=== PATIENT | female | born 1970 | race Caucasian/White ===

== ENCOUNTER 2017-03-29 18:41 | Emergency (ER) | payer OTHER ==
[2017-03-29 19:01] VITALS: O2SAT 97
[2017-03-29] MEDS ORDERED: Phenergan 25 MG INJ IV ONE (19:35)
[2017-03-29] MEDS ORDERED: Sodium Chloride 0.9% 1000 ML 1,000 ML IV STA (19:35)
[2017-03-29] MEDS ORDERED: MORPHINE SULFATE 4 MG INJ IV ONE (19:35)
--- NOTE | 2017-03-29 19:36 | ERPHSYRPT ---
- History of Present Illness Time Seen by Provider: 03/29/17 19:28 Source: patient Exam Limitations: no limitations Patient Subjective Stated Complaint: pt here for pain all over, she states she cant describe it, no fever, eating well, pt states she has chronic pain Triage Nursing Assessment: pt alert, walked in, resp easy, skin w./d,pink, denies any injury, Physician History: FOR THE PAST 12 HOURS PT HAS HAD GENERALIZED ACHES AND HEADACHE; DENIES FEVER, CHEST PAIN, SHORTNESS OF AIR, DYSURIA, NUMBNESS, WEAKNESS. PT STATES SHE IS THIRSTY. Allergies/Adverse Reactions: tramadol Adverse Reaction (Verified 03/29/17 19:02) constipation Hx Tetanus, Diphtheria Vaccination/Date Given: No Hx Influenza Vaccination/Date Given: No Hx Pneumococcal Vaccination/Date Given: No Immunizations Up to Date: Yes - Review of Systems Constitutional: No Fever Respiratory: No Dyspnea Cardiac: No Chest Pain Abdominal/Gastrointestinal: No Vomiting Genitourinary Symptoms: No Dysuria Musculoskeletal: Arthralgias Neurological: Headache Endocrine: Other (THIRST) All Other Systems: Reviewed and Negative - Past Medical History Pertinent Past Medical History: Yes Cardiac History: High Cholesterol, Hypertension Endocrine Medical History: Diabetes Type II, Hypothyroidism Musculoskeletal History: Degenerative Disk Disease Psycho-Social History: Depression - Past Surgical History Past Surgical History: Yes Musculoskeletal: Orthopedic Surgery Other Surgical History: back surgery - Social History Smoking Status: Never smoker Exposure to second hand smoke: No Drug Use: none Patient Lives Alone: No - Female History Hx Last Menstrual Period: none - Nursing Vital Signs Nursing Vital Signs: Initial Vital Signs Temperature 98.9 F 03/29/17 18:57 Pulse Rate 88 03/29/17 18:57 Respiratory Rate 16 03/29/17 18:57 Blood Pressure 129/52 03/29/17 18:57 O2 Sat by Pulse Oximetry 97 03/29/17 18:57 Pain Scale Pain Intensity [Soft Tissue] 8 Pain Intensity 8 - Physical Exam General Appearance: alert Eye Exam: PERRL/EOMI Ears, Nose, Throat Exam: TMs normal, dry mucous membranes Neck Exam: normal inspection Respiratory Exam: lungs clear Cardiovascular Exam: normal heart sounds Gastrointestinal/Abdomen Exam: soft, normal bowel sounds Back Exam: normal range of motion Extremity Exam: normal inspection Neurologic Exam: alert, cooperative, normal mood/affect, sensation nml, No motor deficits Skin Exam: warm, dry SpO2 Interpretation: normal SpO2: 97 Oxygen Delivery: Room Air - Course Nursing assessment & vital signs reviewed: Yes Ordered Tests: Active Orders 24 hr Category Date Time Status IV Insertion STAT Care 03/29/17 19:35 Active CBC W DIFF Stat Lab 03/29/17 19:30 Completed CMP Stat Lab 03/29/17 19:30 Completed HCG QUALITATIVE,SERUM Stat Lab 03/29/17 19:30 Completed MAG [MAGNESIUM] Stat Lab 03/29/17 19:30 Completed Manual Differential NC Stat Lab 03/29/17 19:[address] [place] Screen Stat Lab 03/29/17 19:30 Completed UA W/RFX UR CULTURE Stat Lab 03/29/17 19:30 Completed Medication Summary Discontinued Medications Generic Name Dose Route Start Last Admin Trade Name Freq PRN Reason Stop Dose Admin Sodium Chloride 1,000 mls @ 999 mls/hr 03/29/17 19:35 03/29/17 19:41 Sodium Chloride 0.9% 1000 Ml IV 03/29/17 20:35 999 mls/hr .Q1H1M STA Administration Sodium Chloride Confirm 03/29/17 19:39 Sodium Chloride 0.9% 1000 Ml Administered 03/29/17 19:40 Dose 1,000 mls @ ud .ROUTE .STK-MED ONE Morphine Sulfate 4 mg 03/29/17 19:35 03/29/17 19:41 Morphine Sulfate 4 Mg Inj IV 03/29/17 19:36 4 mg STAT ONE Administration Morphine Sulfate Confirm 03/29/17 19:39 Morphine Sulfate 4 Mg Inj Administered 03/29/17 19:40 Dose 4 mg .ROUTE .STK-MED ONE Promethazine HCl 12.5 mg 03/29/17 19:35 03/29/17 19:41 Phenergan 25 Mg Inj IV 03/29/17 19:36 12.5 mg STAT ONE Administration Promethazine HCl Confirm 03/29/17 19:39 Phenergan 25 Mg Inj Administered 03/29/17 19:40 Dose 25 mg .ROUTE .STK-MED ONE Lab/Rad Data: Laboratory Result Diagrams 03/29/17 19:30 03/29/17 19:30 Laboratory Results 03/29/17 03/29/17 03/29/17 Range/Units 19:30 19:30 19:30 WBC (4.0-10.5) K/mm3 RBC (4.1-5.4) M/mm3 Hgb (12.0-16.0) gm/dl Hct (35-47) % MCV (78-100) fl MCH (26-32) pg MCHC (32-36) g/dl RDW (11.5-14.0) % Plt Count (150-450) K/mm3 MPV (6-9.5) fl Sodium 139 (136-145) mEq/L Potassium 3.7 (3.5-5.1) mEq/L Chloride 104 (98-107) mEq/L Carbon Dioxide 23.0 (21-32) mEq/L Anion Gap 16.0 H (5-15) MEQ/L BUN 19 (9-20) mg/dL Creatinine 1.07 (0.55-1.30) mg/dl Estimated GFR 58 ML/MIN Glucose 220 H (70-110) MG/DL Calcium 8.6 (8.5-10.1) mg/dL Magnesium 1.9 (1.8-2.4) mg/dL Total Bilirubin 0.30 (0.2-1.0) mg/dL AST 27 (15-37) U/L ALT 27 (12-78) U/L Alkaline Phosphatase 95 (46-116) U/L Serum Total Protein 7.6 (6.4-8.2) gm/dL Albumin 3.6 (3.4-5.0) g/dL Serum , Qual NEGATIVE (Negative) Ur Collection Type Urine Color (YELLOW) Urine Appearance (CLEAR) Urine pH (5-6) Ur Specific [place] (1.005-1.025) Urine Protein (Negative) Urine Ketones (NEGATIVE) Urine Blood (0-5) Anderson/ul Urine Nitrite (NEGATIVE) Urine Bilirubin (NEGATIVE) Urine Urobilinogen (0-1) mg/dL Ur Leukocyte Esterase (NEGATIVE) Urine Glucose (NEGATIVE) mg/dL Monoscreen NEGATIVE (Negative) Specimen Received 03/29/17 03/29/17 Range/Units 19:30 19:30 WBC 9.2 (4.0-10.5) K/mm3 RBC 4.82 (4.1-5.4) M/mm3 Hgb 14.4 (12.0-16.0) gm/dl Hct 42.5 (35-47) % MCV 88.2 (78-100) fl MCH 29.9 (26-32) pg MCHC 33.9 (32-36) g/dl RDW 13.1 (11.5-14.0) % Plt Count 215 (150-450) K/mm3 MPV 12.0 H (6-9.5) fl Sodium (136-145) mEq/L Potassium (3.5-5.1) mEq/L Chloride (98-107) mEq/L Carbon Dioxide (21-32) mEq/L Anion Gap (5-15) MEQ/L BUN (9-20) mg/dL Creatinine (0.55-1.30) mg/dl Estimated GFR ML/MIN Glucose (70-110) MG/DL Calcium (8.5-10.1) mg/dL Magnesium (1.8-2.4) mg/dL Total Bilirubin (0.2-1.0) mg/dL AST (15-37) U/L ALT (12-78) U/L Alkaline Phosphatase (46-116) U/L Serum Total Protein (6.4-8.2) gm/dL Albumin (3.4-5.0) g/dL Serum , Qual (Negative) Ur Collection Type CLEAN CATCH Urine Color YELLOW (YELLOW) Urine Appearance CLEAR (CLEAR) Urine pH 5.0 (5-6) Ur Specific [place] 1.025 (1.005-1.025) Urine Protein NEGATIVE (Negative) Urine Ketones NEGATIVE (NEGATIVE) Urine Blood NEGATIVE (0-5) Anderson/ul Urine Nitrite NEGATIVE (NEGATIVE) Urine Bilirubin NEGATIVE (NEGATIVE) Urine Urobilinogen NORMAL (0-1) mg/dL Ur Leukocyte Esterase NEGATIVE (NEGATIVE) Urine Glucose 50 (NEGATIVE) mg/dL Monoscreen (Negative) Specimen Received 03/29/171934 - Departure Time of Disposition: 21:03 Departure Disposition: Home Clinical Impression: HEADACHE, ARTHRALGIAS, HTN, DM, HYPOTHYROIDISM, DEPRESSION Condition: Stable Critical Care Time: No Referrals: AMNA BALL [Primary Care Provider] - Instructions: Chronic Pain -- Adult Additional Instructions: FOLLOW UP WITH PRIVATE DOCTOR TOMORROW. Prescriptions: Naproxen [Naprosyn] 500 mg PO Q12H PRN PRN #20 tablet PRN Reason: Pain
[2017-03-29] MEDS ORDERED: Phenergan 25 MG INJ ONE (19:39)
[2017-03-29] MEDS ORDERED: Sodium Chloride 0.9% 1000 ML 1,000 ML ONE (19:39)
[2017-03-29] MEDS ORDERED: MORPHINE SULFATE 4 MG INJ ONE (19:39)
[2017-03-29 19:43] LABS: Mean Cell Volume 88.2 fl (78-100); Mean Corpuscular Hemoglobin 29.9 pg (26-32); Platelet Count 215 K/mm3 (150-450); Red Blood Count 4.82 M/mm3 (4.1-5.4); Red Cell Distribution Width 13.1 % (11.5-14.0); White Blood Count 9.2 K/mm3 (4.0-10.5)
[2017-03-29 19:59] LABS: ALBUMIN 3.6 g/dL (3.4-5.0); BILIRUBIN,TOTAL 0.3 mg/dL (0.2-1.0); Potassium 3.7 mEq/L (3.5-5.1); Total Protein 7.6 gm/dL (6.4-8.2)
[2017-03-29 20:17] LABS: ADD URINE CULTURE? NO (NO); Bilirubin NEGATIVE (NEGATIVE); Blood NEGATIVE Ery/ul (0-5); COMPLETE URINE MICROSCOPIC? NO; Collection Type CLEAN CATCH; Glucose 50 mg/dL (NEGATIVE); Leukocyte Esterase NEGATIVE (NEGATIVE)
[2017-03-29 20:19] VITALS: BP 142/83; PULSE 86
[2017-03-29] MEDS ORDERED: TORAdol 30 mg Injection IV ONE (21:04)
[2017-03-29] MEDS ORDERED: TORAdol 30 mg Injection ONE (21:06)
[2017-03-29 23:22] LABS: Eosinophil 2 % (0.00-3.0); Platelet Estimate NORMAL (NORMAL); Total Cells Counted 100
== END 2017-03-29 21:25 | disposition home or self-care (01) ==
LOC: ED 18:41
DX: R51 Headache (principal); M25.50 Pain in unspecified joint; I10 Essential (primary) hypertension; E11.9 Type 2 diabetes mellitus without complications; E03.9 Hypothyroidism, unspecified; F32.9 Major depressive disorder, single episode, unspecified; R63.1 Polydipsia; E78.00 Pure hypercholesterolemia, unspecified
CPT/HCPCS: 36000; 36415; 80053; 81002; 83735; 84703; 85025; 86308; 96374; 96375; 99283; J1885; J2270; J2550

== ENCOUNTER 2017-09-04 12:42 | Emergency (ER) | payer OTHER ==
[2017-09-04] MEDS ORDERED: Norco 10/325 MG Tablet PO ONE (13:11)
--- NOTE | 2017-09-04 13:14 | ERPHSYRPT ---
- History of Present Illness Time Seen by Provider: 09/04/17 13:05 Patient Subjective Stated Complaint: Pt states "I am not sure what is wrong, I woke up this morning and my left leg syed up into my knee and hip. I have a bruise on the side of my leg and I am not sure how it got there." Triage Nursing Assessment: Pt alert and oriented X 3, skin pwd. PT ambulates with a limp, able to speak in clear full sentences. PT has small bruise noted to lateral left leg. CSM X 4 throughout Physician History: PATIENT WITH A HISTORY OF HYPERTENSION AND TYPE 2 DIABETES COMPLAINS OF AWAKENING THIS AM WITH LEFT CALF PAIN, WORSE UPON WEIGHT BEARING. DENIES HISTORY OF TRAUMA OR INJURY. Method of Injury: unknown Occurred: this morning Quality: constant Severity of Pain-Max: moderate Severity of Pain-Current: moderate Lower Extremities Pain: leg: left (LEFT MID CALF) Modifying Factors: Improves With: movement, other (WEIGHT BEARING) Allergies/Adverse Reactions: tramadol Adverse Reaction (Verified 03/29/17 19:02) constipation Home Medications: Aspirin EC 81 mg [Ecotrin 81 mg] 81 mg PO DAILY 05/26/17 [History] Carvedilol 6.25 mg [Coreg 6.25 MG] 6.25 mg PO BID 05/26/17 [History] Duloxetine HCl [Cymbalta] 60 mg PO DAILY 05/26/17 [History] Ezetimibe 10 mg [Zetia 10 MG] 10 mg PO DAILY 05/26/17 [History] Ibuprofen 800 mg PO QID 05/26/17 [History] Lisinopril 10 mg [Zestril 10 MG] 10 mg PO DAILY 05/26/17 [History] Metformin HCl 500 mg [Glucophage 500 MG] 500 mg PO DAILY 05/26/17 [History ] Pravastatin Sodium [Pravachol] 40 mg PO DAILY 05/26/17 [History] Pregabalin [Lyrica 75 mg Cap] 75 mg PO BID 05/26/17 [History] Hx Tetanus, Diphtheria Vaccination/Date Given: Yes Hx Influenza Vaccination/Date Given: Yes Hx Pneumococcal Vaccination/Date Given: No Immunizations Up to Date: Yes - Review of Systems Constitutional: No Symptoms, No Fever, No Chills Musculoskeletal: Other (CALF PAIN) Neurological: No Symptoms, No Dizziness, No Focal Weakness, No Sensory Changes Psychological: No Symptoms - Past Medical History Pertinent Past Medical History: Yes Neurological History: Migraines, Peripheral Neuropathy Cardiac History: High Cholesterol, Hypertension, Other Respiratory History: No Pertinent History Endocrine Medical History: Diabetes Type II Musculoskeletal History: Arthritis, Degenerative Disk Disease Psycho-Social History: Depression Other Medical History: Pt took neurotin with no relief. 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 Spondylosis. - Past Surgical History Past Surgical History: Yes Musculoskeletal: Orthopedic Surgery Other Surgical History: back surgery - Social History Smoking Status: Never smoker Exposure to second hand smoke: Yes Drug Use: none Patient Lives Alone: No - Female History Hx Last Menstrual Period: 07/16/2017 Hx Now: No - Nursing Vital Signs Nursing Vital Signs: Initial Vital Signs Temperature 98.1 F 09/04/17 12:52 Pulse Rate 80 09/04/17 12:52 Respiratory Rate 18 09/04/17 12:52 Blood Pressure 105/65 09/04/17 12:52 O2 Sat by Pulse Oximetry 98 09/04/17 12:52 Pain Scale Pain Intensity [Left Calf] 7 Pain Intensity 5 - Physical Exam General Appearance: no apparent distress, alert Neck Exam: normal inspection Cardiovascular/Respiratory Exam: normal breath sounds, heart sounds normal Legs Exam: left leg: normal inspection, pain, soft tissue tenderness ( CIRCUMFERENCE RIGHT MID CALF 47CM, LEFT MID CALF CIRCUMFERENCE 48CM, POSITIVE YUMIKO SIGN), other (LEFT PEDIS PULSE 2+) Neuro/Tendon Exam: normal sensation, normal motor functions Mental Status Exam: alert, oriented x 3 SpO2 Interpretation: normal SpO2: 98 Oxygen Delivery: Room Air - Radiology Ultrasound Exam Venous Lower Extremity Ultrasound: discussed w/radiologist (VENOUS DOPPLER NEGATIVE FOR DVT) Ordered Tests: Active Orders 24 hr Category Date Time Status VENOUS UNILAT/LIMITED EXTREMIT [US] Stat Exams 09/04/17 15:18 Taken Medication Summary Discontinued Medications Generic Name Dose Route Start Last Admin Trade Name Freq PRN Reason Stop Dose Admin Hydrocodone Bitart/Acetaminophen 1 tab 09/04/17 13:11 09/04/17 13:23 [place] 10/325 Mg Tablet PO 09/04/17 13:12 1 tab STAT ONE Administration Hydrocodone Bitart/Acetaminophen Confirm 09/04/17 13:20 [place] 10/325 Mg Tablet Administered 09/04/17 13:21 Dose 1 tab .ROUTE .STK-MED ONE - Progress Progress: improved Progress Note: 09/04/17 13:32 ADMINISTERED VICODIN 10/325 ORALLY Counseled pt/family regarding: diagnosis, need for follow-up, rad results - Departure Time of Disposition: 15:35 Departure Disposition: Home Clinical Impression: PHLEBITIS LEFT LEG Condition: Stable Critical Care Time: No Referrals: AMNA BALL [Primary Care Provider] - Additional Instructions: PREDNISONE 20MG, 2 TABLETS DAILY FOR 4 DAYS, ANTIBIOTIC KEFLEX 500MG EVERY 8 HOURS FOR 7 DAYS. NORCO 5/325 EVERY 4 HOURS FOR PAIN. AMBULATE USING WALKER ASSISTANCE NONWEIGHT BEARING LEFT LEG FOR 1 WEEK. CONSULT YOUR PRIMARY CARE PROVIDER FOR FOLLOWUP IN 1 WEEK. Prescriptions: Cephalexin Mh 500 mg [Keflex 500 mg] 500 mg PO TID #21 capsule Hydrocodone Bit/Acetaminophen [[place] 5-325 Tablet] 1 each PO Q4-6HPRN PRN #8 tablet MDD 4 PRN Reason: Pain Prednisone 20 mg [Deltasone 20 mg] 2 tab PO DAILY #8 tablet
[2017-09-04] MEDS ORDERED: Norco 10/325 MG Tablet ONE (13:20)
[2017-09-04 15:40] VITALS: BP 98/54; PULSE 78; O2SAT 97
--- NOTE | 2017-09-04 20:23 | XRAY ---
Indication: Left calf pain. Two-dimensional sonogram and color Doppler imaging of the major venous vessels of the left leg was performed. Comparison: None Exam technically difficult due to patient body habitus. No thrombus seen in the examined deep venous vessels of the left leg including greater saphenous vein. Veins demonstrate normal compressibility. Venous waveforms are normal with and without augmentation. Impression: Left leg negative for DVT. Comment: Preliminary report was given.
== END 2017-09-04 15:40 | disposition home or self-care (01) ==
LOC: ED 12:42
DX: I80.3 Phlebitis and thrombophlebitis of lower extremities, unspecified (principal); Z79.899 Other long term (current) drug therapy; E11.9 Type 2 diabetes mellitus without complications; I10 Essential (primary) hypertension
CPT/HCPCS: 93971; 99283; A9270-GY

== ENCOUNTER 2017-09-06 16:23 | Emergency (ER) | payer OTHER ==
--- NOTE | 2017-09-06 16:48 | ERPHSYRPT ---
- History of Present Illness Time Seen by Provider: 09/06/17 16:29 Source: patient Patient Subjective Stated Complaint: pt here for a dog bite to top of foot right foot below 3rd and 4th toes and 1 cm laceration to 4th toe and puncture wounds medial Triage Nursing Assessment: pt alert, arrived per wc, resp easy, small amt of bleeding noted Physician History: CC: dog bite Hx: 47 y/o patient of Dr Ball has dog bite to right foot, [employer]. She was trying to separate to family dogs that were fighting. No other injuries. Tetanus up to date less than 5 years. She has been on keflex and norco for left leg pain. She has hx of DM. Allergies/Adverse Reactions: tramadol Adverse Reaction (Verified 09/06/17 16:44) constipation Home Medications: Aspirin EC 81 mg [Ecotrin 81 mg] 81 mg PO DAILY 05/26/17 [History] Carvedilol 6.25 mg [Coreg 6.25 MG] 6.25 mg PO BID 05/26/17 [History] Duloxetine HCl [Cymbalta] 60 mg PO DAILY 05/26/17 [History] Ezetimibe 10 mg [Zetia 10 MG] 10 mg PO DAILY 05/26/17 [History] Ibuprofen 800 mg PO QID 05/26/17 [History] Lisinopril 10 mg [Zestril 10 MG] 10 mg PO DAILY 05/26/17 [History] Metformin HCl 500 mg [Glucophage 500 MG] 500 mg PO DAILY 05/26/17 [History ] Pravastatin Sodium [Pravachol] 40 mg PO DAILY 05/26/17 [History] Pregabalin [Lyrica 75 mg Cap] 75 mg PO BID 05/26/17 [History] Hx Tetanus, Diphtheria Vaccination/Date Given: ([id number]) Hx Influenza Vaccination/Date Given: No Hx Pneumococcal Vaccination/Date Given: No Immunizations Up to Date: Yes - Review of Systems Constitutional: No Fever, No Chills Eyes: No Symptoms Ears, Nose, & Throat: No Symptoms Cardiac: No Chest Pain Abdominal/Gastrointestinal: No Abdominal Pain Musculoskeletal: Injury (right foot), No Back Pain, No Neck Pain Skin: Skin Lesions, No Rash Neurological: No Focal Weakness, No Headache, No Parasthesia All Other Systems: Reviewed and Negative - Past Medical History Pertinent Past Medical History: Yes Neurological History: Migraines, Peripheral Neuropathy Cardiac History: High Cholesterol, Hypertension, Other Respiratory History: No Pertinent History Endocrine Medical History: Diabetes Type II Musculoskeletal History: Arthritis, Degenerative Disk Disease Psycho-Social History: Depression Other Medical History: Spondylosis - Past Surgical History Past Surgical History: Yes Musculoskeletal: Orthopedic Surgery Other Surgical History: back surgery - Social History Smoking Status: Never smoker Exposure to second hand smoke: Yes Drug Use: none Patient Lives Alone: No - Female History Hx Last Menstrual Period: post Hx Now: No - Nursing Vital Signs Nursing Vital Signs: Initial Vital Signs Temperature 99.1 F 09/06/17 16:34 Pulse Rate 86 09/06/17 16:34 Respiratory Rate 16 09/06/17 16:34 Blood Pressure 145/85 09/06/17 16:34 O2 Sat by Pulse Oximetry 97 09/06/17 16:34 Pain Scale Pain Intensity 5 - Physical Exam General Appearance: alert Eyes, Ears, Nose, Throat Exam: moist mucous membranes Neck Exam: normal inspection, non-tender, supple Cardiovascular/Respiratory Exam: normal breath sounds, regular rate/rhythm Gastrointestinal/Abdominal Exam: non-tender, soft Neuro/Tendon Exam: normal sensation, normal motor functions Mental Status Exam: alert, oriented x 3, cooperative Skin Exam: warm, dry SpO2 Interpretation: normal SpO2: 97 Oxygen Delivery: Room Air Comments: Right foot has dorsal puncture distal to dorsalis pedis pulse which is present. There is mild swelling. There is 1 cm laceration medial prox 4th toe in web. There is punctures to the medial MTP area. Sensation intact. Cap refill intact. No FB noted. - Course Nursing assessment & vital signs reviewed: Yes - Radiology Exams right foot X-ray Interpretation: Teleradiologist Report, No Fracture (no FB, small dorsal soft tissue air) Ordered Tests: Active Orders 24 hr Category Date Time Status Splint STAT Care 09/06/17 17:18 Active Wound Care STAT Care 09/06/17 16:40 Active FOOT (MINIMUM 3 VIEWS) Stat Exams 09/06/17 16:54 Completed - Progress Progress Note: 09/06/17 17:19 Wounds cleansed. Irrigated dorsal. Augmentin given. To follow up with Dr Ball. Instr given. Toe lac not gaping or bleeding so not repaired. Counseled pt/family regarding: diagnosis, need for follow-up, rad results - Departure Time of Disposition: 17:19 Departure Disposition: Home Clinical Impression: Dog bite of right foot Condition: Stable Critical Care Time: No Referrals: AMNA BALL [Primary Care Provider] - Instructions: Animal Bites (DC) Additional Instructions: LACERATION CARE 1. Do not use peroxide, merthiolate, alcohol, or betadine. 2. Keep wound clean and dry. 3. Change dressing if it becomes wet or soiled. 4. If you must work, wear protective covering. 5. You may return to the emergency department or see your family physician for suture removal. 6. See your family physician or return to the emergency department for any of the following signs or symptoms: A. Redness B. Swelling C. Discolored drainage D. Red streaks E. Elevated temperature F. Other signs of infection Rx augmentin instead of keflex. Use your norco as already prescribed. Report any sign of infection right away. Prescriptions: Amox Tr/[place] Clav. 875 mg [Augmentin 875-125 Tablet] 875 mg PO BID #20 tablet
--- NOTE | 2017-09-06 17:01 | XRAY ---
Indication: Dog bite. Comparison: None 3 nonweightbearing views of the right foot demonstrates mild anterior forefoot soft tissue swelling with tiny subcutaneous air bubble. Elsewhere posterior/plantar heel spurs and 5th metatarsal base tiny spur. No other bony, articular, or soft tissue abnormalities.
[2017-09-06] MEDS ORDERED: Augmentin 875-125 Tablet PO ONE (17:18)
[2017-09-06] MEDS ORDERED: Augmentin 875-125 Tablet ONE (17:58)
[2017-09-06 18:12] VITALS: BP 112/81; PULSE 80; O2SAT 98
== END 2017-09-06 18:11 | disposition home or self-care (01) ==
LOC: ED 16:23
DX: S91.351A Open bite, right foot, initial encounter (principal); W54.0XXA Bitten by dog, initial encounter
CPT/HCPCS: 73630; 99283; 99284; A9270-GY

== ENCOUNTER 2018-04-06 12:37 | Observation (INO) | payer OTHER ==
[2018-04-06] MEDS ORDERED: BABY ASPIRIN 81 MG CHEW (13:35)
[2018-04-06] MEDS: BABY ASPIRIN 81 MG CHEW PO (13:36)
[2018-04-06 13:57] LABS: BASOPHIL % 0.4 % (0.0-0.4); Basophil (Absolute #) 0.03 (0-0.4); Eosinophil % 2.9 % (0.00-5.0); Eosinophil (Absolute #) 0.24 (0-0.5); Granulocyte Absolute (ANC) 5.62 (1.4-6.9); Granulocytes % 67.3 % (36.0-66.0); Hematocrit 43.7 % (35-47); Hemoglobin 14.3 gm/dl (12.0-16.0); Lymphocytes % 25.2 % (24.0-44.0); Mean Cell Volume 83.6 fl (78-100); Mean Corpuscular Hemoglobin 27.3 pg (26-32); Mean Corpuscular Hgb Concent. 32.7 g/dl (32-36); Mean Platelet Volume 10.7 fl (6-9.5); Monocyte (Absolute #) 0.35 (0.0-1.3); Monocytes % 4.2 % (0.0-12.0); Platelet Count 186 K/mm3 (150-450); Red Blood Count 5.23 M/mm3 (4.1-5.4); Red Cell Distribution Width 15.3 % (11.5-14.0); White Blood Count 8.3 K/mm3 (4.0-10.5)
[2018-04-06 14:02] LABS: ADD MANUAL DIFF? NO (NO)
[2018-04-06 14:19] LABS: ALBUMIN 4.3 g/dL (3.5-5.0); ALKALINE PHOSPHATASE 91 U/L (38-126); AMYLASE 53 U/L (30-110); BLOOD UREA NITROGEN 16 mg/dL (7-17); CHLORIDE 103 mmol/L (98-107); Calcium 9.5 mg/dL (8.4-10.2); Carbon Dioxide 27 mmol/L (22-30); Creatinine 1 0.77 mg/dL (0.52-1.04); EST GLOMERULAR FILTRATION RATE > 60.0 ML/MIN; Glucose 94 mg/dL (74-106); LIPASE 174 U/L (23-300); Potassium 4.3 mmol/L (3.5-5.1); SGOT/AST 32 U/L (14-36); SGPT/ALT 20 U/L (0-35); SODIUM 141 mmol/L (137-145); Total Protein 7.6 g/dL (6.3-8.2)
[2018-04-06 14:38] LABS: TROPONIN < 0.012 ng/mL (0.000-0.034)
[2018-04-06 15:01] LABS: HCG QUALITATIVE,SERUM NEGATIVE (Negative)
[2018-04-06] MEDS ORDERED: NovoLOG Insulin SQ (15:25)
[2018-04-06] MEDS ORDERED: Sodium Chloride 0.9% 10 ML FLUSH Syringe IV (16:52)
[2018-04-06] MEDS: Zofran 4 MG/2 ML VIAL IV (17:06)
[2018-04-06] MEDS: Protonix 40MG Tablet PO (17:07)
[2018-04-06] MEDS: TYLENOL 325 MG PO ×2 (17:07→22:01)
[2018-04-06 18:02] LABS: TROPONIN < 0.012 ng/mL (0.000-0.034)
[2018-04-06 18:42] LABS: HEMOGLOBIN A1C 5.48 % (4.5-6.0)
[2018-04-06 19:54] LABS: TROPONIN < 0.012 ng/mL (0.000-0.034)
[2018-04-06] MEDS: Sodium Chloride 0.9% 10 ML FLUSH Syringe IV (21:41)
[2018-04-06] MEDS: Coreg 6.25 MG PO (21:42)
[2018-04-06] MEDS: Cymbalta 30 MG Capsule PO (21:42)
[2018-04-06] MEDS: Zetia 10 MG PO (21:42)
[2018-04-06] MEDS: LYRICA 150MG PO (21:42)
[2018-04-06] MEDS: ZOCOR 20MG PO (21:42)
[2018-04-06] MEDS ORDERED: NON-FORMULARY ITEM (Pravastatin Sodium [Pravachol] 40 MG) PO (22:00)
[2018-04-06] MEDS ORDERED: Ecotrin 325 MG PO (22:00)
[2018-04-06] MEDS ORDERED: NON-FORMULARY ITEM (Duloxetine Hcl [Cymbalta] 60 MG) PO (22:00)
[2018-04-06 23:41] LABS: TROPONIN < 0.012 ng/mL (0.000-0.034)
[2018-04-07 02:08] LABS: BASOPHIL % 0.3 % (0.0-0.4); Basophil (Absolute #) 0.02 (0-0.4); Eosinophil % 4.7 % (0.00-5.0); Eosinophil (Absolute #) 0.33 (0-0.5); Granulocyte Absolute (ANC) 3.63 (1.4-6.9); Granulocytes % 51.3 % (36.0-66.0); Hematocrit 42.8 % (35-47); Lymphocyte (Absolute #) 2.75 (1.0-4.6); Lymphocytes % 38.9 % (24.0-44.0); Mean Cell Volume 85.6 fl (78-100); Mean Corpuscular Hgb Concent. 32.7 g/dl (32-36); Mean Platelet Volume 10.3 fl (6-9.5); Monocyte (Absolute #) 0.34 (0.0-1.3); Monocytes % 4.8 % (0.0-12.0); Platelet Count 150 K/mm3 (150-450); Red Cell Distribution Width 15.4 % (11.5-14.0); White Blood Count 7.1 K/mm3 (4.0-10.5)
[2018-04-07 02:13] LABS: ADD MANUAL DIFF? NO (NO)
[2018-04-07 02:54] LABS: TROPONIN < 0.012 ng/mL (0.000-0.034)
[2018-04-07 03:32] LABS: ALBUMIN 3.7 g/dL (3.5-5.0); ALKALINE PHOSPHATASE 75 U/L (38-126); AMYLASE 37 U/L (30-110); ANION GAP 13.4 MEQ/L (5-15); BLOOD UREA NITROGEN 15 mg/dL (7-17); CHLORIDE 103 mmol/L (98-107); Calcium 8.9 mg/dL (8.4-10.2); Carbon Dioxide 27 mmol/L (22-30); Creatinine 1 0.77 mg/dL (0.52-1.04); EST GLOMERULAR FILTRATION RATE > 60.0 ML/MIN; Glucose 94 mg/dL (74-106); LIPASE 184 U/L (23-300); Potassium 4.3 mmol/L (3.5-5.1); SGOT/AST 32 U/L (14-36); SGPT/ALT 17 U/L (0-35); SODIUM 139 mmol/L (137-145); Total Protein 6.6 g/dL (6.3-8.2)
[2018-04-07] MEDS: Sodium Chloride 0.9% 10 ML FLUSH Syringe IV (06:50)
[2018-04-07] MEDS: Coreg 6.25 MG PO (08:10)
[2018-04-07] MEDS: LYRICA 150MG PO (08:10)
[2018-04-07] MEDS: Cymbalta 30 MG Capsule PO (08:10)
[2018-04-07] MEDS: Zestril 10 MG PO (08:14)
[2018-04-07] MEDS: Protonix 40MG Tablet PO (08:14)
[2018-04-07] MEDS: ECOTRIN 81 MG PO (08:14)
[2018-04-07] MEDS: SYNTHROID 75 MCG PO (08:14)
== END 2018-04-07 10:55 | disposition home or self-care (01) ==
LOC: ED 12:37 → MED SURG 15:22
CPT/HCPCS: 36000; 36415; 71045; 80053; 82150; 82962; 83036; 83690; 84484; 84703; 85025; 93005; 99285; J2405

== ENCOUNTER 2021-05-17 10:44 | Emergency (ER) | payer OTHER ==
[2021-05-17 11:52] LABS: Absolute Neutrophil Ct (ANC) 1.27 (1.4-6.9); Basophil (Absolute #) 0 (0-0.4); Eosinophil % 0.5 % (0.00-5.0); Eosinophil (Absolute #) 0.01 (0-0.5); Hematocrit 42.7 % (35-47); Hemoglobin 13.6 gm/dl (12.0-16.0); Lymphocyte (Absolute #) 0.75 (1.0-4.6); Lymphocytes % 34.1 % (24.0-44.0); Mean Cell Volume 91.6 fl (78-100); Mean Corpuscular Hemoglobin 29.2 pg (26-32); Mean Corpuscular Hgb Concent. 31.9 g/dl (32-36); Monocyte (Absolute #) 0.17 (0.0-1.3); Monocytes % 7.7 % (0.0-12.0); Neutrophil % 57.7 % (36.0-66.0); Platelet Count 83 K/mm3 (150-450); Red Blood Count 4.66 M/mm3 (4.1-5.4); Red Cell Distribution Width 14.7 % (11.5-14.0); White Blood Count 2.2 K/mm3 (4.0-10.5)
[2021-05-17 12:04] LABS: ALBUMIN 3.6 g/dL (3.5-5.0); ALKALINE PHOSPHATASE 88 U/L (38-126); BLOOD UREA NITROGEN 21 mg/dL (7-17); CHLORIDE 103 mmol/L (98-107); Calcium 8.4 mg/dL (8.4-10.2); Carbon Dioxide 23 mmol/L (22-30); Creatinine 1 0.69 mg/dL (0.52-1.04); EST GLOMERULAR FILTRATION RATE > 60.0 ML/MIN; Glucose 194 mg/dL (74-106); Potassium 4.2 mmol/L (3.5-5.1); SGOT/AST 65 U/L (14-36); SGPT/ALT 21 U/L (0-35); SODIUM 139 mmol/L (137-145); Total Protein 6.8 g/dL (6.3-8.2)
[2021-05-17 12:29] LABS: Slide Review 1 YES
[2021-05-17] MEDS ORDERED: Sodium Chloride 0.9% 1000 ML 1,000 ML IV STA (13:06)
[2021-05-17] MEDS ORDERED: Sodium Chloride 0.9% 1000 ML 1,000 ML ONE (13:09)
[2021-05-17 13:31] VITALS: O2SAT 93
[2021-05-17] MEDS ORDERED: Levofloxacin 500 MG Tablet PO ONE (14:28)
[2021-05-17] MEDS ORDERED: Levofloxacin 500 MG Tablet ONE (14:32)
--- NOTE | 2021-05-17 15:21 | ERPHSYRPT ---
- History of Present Illness Time Seen by Provider: 05/17/21 10:50 Source: patient Exam Limitations: no limitations Patient Subjective Stated Complaint: pt here for a cough and coughed up 2 blood clots today, she is covid postive Triage Nursing Assessment: pt alert, resp easy, face mask in place, has dry cough, skin w/d/p. abd soft, Physician History: 50 years old female with history of hypertension, hyperlipidemia, h ypothyroidism, diabetes mellitus, unvaccinated against COVID-19 with a positive Covid symptoms for 1 week and positive Covid test 5 days ago presented in the ER with worsening cough. Patient report initially it was dry and gradually having some productive cough clear sputum without any associated shortness of breath. At this morning she noticed coughing up couple of blood clots dark-colored. De nies taking any blood thinners. Denies any chest pain but has some soreness because of repeated coughing. Timing/Duration: week(s) (1), intermittent, gradual onset, worse Cough Quality/Degree: moderate, dry cough, productive cough, sputum Possible Cause: no prior episodes Associated Symptoms: chills, chest pain/soreness, cough, headache, muscle aches, nasal drainage, sinus infection, No shortness of breath Allergies/Adverse Reactions: tramadol Adverse Reaction (Mild, Verified 05/17/21 11:47) constipation Home Medications: Aspirin EC 81 mg [Ecotrin 81 mg] 81 mg PO DAILY 05/26/17 [History] Carvedilol 6.25 mg [Coreg 6.25 MG] 6.25 mg PO BID 05/26/17 [History] Ezetimibe 10 mg [Zetia 10 MG] 10 mg PO HS 05/26/17 [History] Lisinopril 10 mg [Zestril 10 MG] 10 mg PO DAILY 05/26/17 [History] Metformin HCl 500 mg [Glucophage 500 MG] 500 mg PO BID 05/26/17 [History] Meloxicam [Mobic] 15 mg PO DAILY 09/20/17 [History] Duloxetine HCl [Cymbalta] 60 mg PO BID 04/06/18 [History] Levothyroxine Sodium 75 Mcg [Synthroid 75 Mcg] 75 mcg PO DAILY 04/06/18 [History] Pravastatin Sodium [Pravachol] 40 mg PO HS 04/06/18 [History] Pregabalin [Lyrica 150Mg] 150 mg PO BID 04/06/18 [History] Hx Tetanus, Diphtheria Vaccination/Date Given: ([id number]) Hx Influenza Vaccination/Date Given: No Hx Pneumococcal Vaccination/Date Given: No Immunizations Up to Date: Yes Travel Risk - International Travel Have you traveled outside of the country in past 3 weeks: No - Coronavirus Screening Are you exhibiting any of the following symptoms?: Yes Symptoms: Fever, Cough: New Onset, Shortness of Breath, Headaches/Body Aches/Fatigue - Vaccine Status Have you recieved a Covid-19 vaccination: No - Review of Systems Constitutional: Chills, Fatigue, Weakness Eyes: No Symptoms Ears, Nose, & Throat: Nose Congestion Respiratory: Cough Cardiac: No Symptoms Abdominal/Gastrointestinal: No Symptoms Genitourinary Symptoms: No Symptoms Musculoskeletal: Myalgias Skin: No Symptoms Neurological: Headache Psychological: No Symptoms Endocrine: No Symptoms Hematologic/Lymphatic: No Symptoms Immunological/Allergic: No Symptoms - Past Medical History Pertinent Past Medical History: No Neurological History: Migraines, Peripheral Neuropathy Cardiac History: High Cholesterol, Hypertension Respiratory History: No Pertinent History Endocrine Medical History: Diabetes Type II, Hypothyroidism Musculoskeletal History: Arthritis, Osteoporosis GI Medical History: No Pertinent History History: No Pertinent History Psycho-Social History: Anxiety, Depression Female Reproductive Disorders: No Pertinent History Other Medical History: bone spur on spine. 30% heart blockage no stents - Past Surgical History Past Surgical History: Yes Neuro Surgical History: No Pertinent History Cardiac: Cardiac Catheterization Respiratory: No Pertinent History Gastrointestinal: No Pertinent History Genitourinary: No Pertinent History Musculoskeletal: Orthopedic Surgery Female Surgical History: No Pertinent History Other Surgical History: Lumbar back surgery 2014. neck fustion and bone spur removal. lymph node removal left armpit - Social History Smoking Status: Never smoker Exposure to second hand smoke: No Drug Use: none Patient Lives Alone: No - Female History Hx Last Menstrual Period: post Hx Now: No - Nursing Vital Signs Nursing Vital Signs: Initial Vital Signs Respiratory Rate 20 05/17/21 10:44 O2 Sat by Pulse Oximetry 95 05/17/21 10:44 Pain Scale Pain Intensity 6 - Physical Exam General Appearance: no apparent distress, alert Eye Exam: PERRL/EOMI, eyes nml inspection Ears, Nose, Throat Exam: TMs normal, pharyngeal erythema Neck Exam: normal inspection, non-tender, full range of motion Respiratory Exam: rhonchi, wheezing, No accessory muscle use Cardiovascular Exam: regular rate/rhythm, normal heart sounds Gastrointestinal/Abdomen Exam: soft, normal bowel sounds, No tenderness Back Exam: normal inspection, normal range of motion Extremity Exam: normal inspection, normal range of motion Neurologic Exam: alert, oriented x 3, cooperative Skin Exam: normal color SpO2 Interpretation: normal SpO2: 93 O2 Delivery: Room Air - Course EKG Interpreted by Me: RATE (95), Sinus Rhythm, NORMAL AXIS, NORMAL INTERVALS, Q-wave (inferior), Non-specific ST Changes Ordered Tests: Active Orders 24 hr Category Date Time Status Venereal Disease Control Head STAT Care 05/17/21 11:05 Active EKG-ER Only STAT Care 05/17/21 11:04 Active IV Insertion STAT Care 05/17/21 11:04 Active Isolation, Initiate & Maintain STAT Care 05/17/21 11:04 Active Pulse Oximetry (ED) ROUTINE Care 05/17/21 11:05 Active CHEST WITH CONTRAST [CT] Stat Exams 05/17/21 11:06 Taken BLOOD CULTURE Stat Lab 05/17/21 11:35 Received CBC W DIFF Stat Lab 05/17/21 11:04 Completed CMP Stat Lab 05/17/21 11:35 Completed D-DIMER QUANTITATIVE Stat Lab 05/17/21 11:35 Completed Ferritin Stat Lab 05/17/21 11:35 Completed Lactic Acid Routine Lab 05/17/21 14:50 Completed Lactic Acid Stat Lab 05/17/21 11:51 Completed TROPONIN Q3H Lab 05/17/21 11:15 Completed TROPONIN Q3H Lab 05/17/21 14:43 Received TROPONIN Q3H Lab 05/17/21 17:15 Ordered TROPONIN Q3H Lab 05/17/21 20:15 Ordered TROPONIN Q3H Lab 05/17/21 23:15 Ordered Medication Summary Discontinued Medications Generic Name Dose Route Start Last Admin Trade Name Freq PRN Reason Stop Dose Admin Sodium Chloride 1,000 mls @ 999 mls/hr 05/17/21 13:06 05/17/21 14:12 Sodium Chloride 0.9% 1000 Ml IV 05/17/21 14:06 Infused .Q1H1M STA Infusion Sodium Chloride Confirm 05/17/21 13:09 Sodium Chloride 0.9% 1000 Ml Administered 05/17/21 13:10 Dose 1,000 mls @ ud .ROUTE .[facility] ONE Levofloxacin 500 mg 05/17/21 14:28 05/17/21 14:33 Levofloxacin 500 Mg Tablet PO 05/17/21 14:29 500 mg STAT ONE Administration Levofloxacin Confirm 05/17/21 14:32 Levofloxacin 500 Mg Tablet Administered 05/17/21 14:33 Dose 500 mg .ROUTE .[facility] ONE Lab/Rad Data: Laboratory Result Diagrams 05/17/21 11:04 05/17/21 11:35 Laboratory Results 05/17/21 05/17/21 05/17/21 Range/Units 14:50 14:43 11:51 WBC (4.0-10.5) K/mm3 RBC (4.1-5.4) M/mm3 Hgb (12.0-16.0) gm/dl Hct (35-47) % MCV (78-100) fl MCH (26-32) pg MCHC (32-36) g/dl RDW (11.5-14.0) % Plt Count (150-450) K/mm3 MPV (7.5-11.0) fl Gran % (36.0-66.0) % Eos # (Auto) (0-0.5) Absolute Lymphs (auto) (1.0-4.6) Absolute Monos (auto) (0.0-1.3) Lymphocytes % (24.0-44.0) % Monocytes % (0.0-12.0) % Eosinophils % (0.00-5.0) % Basophils % (0.0-0.4) % Absolute Granulocytes (1.4-6.9) Basophils # (0-0.4) D-Dimer (215-500) ng/mL Sodium (137-145) mmol/L Potassium (3.5-5.1) mmol/L Chloride (98-107) mmol/L Carbon Dioxide (22-30) mmol/L Anion Gap (5-15) MEQ/L BUN (7-17) mg/dL Creatinine (0.52-1.04) mg/dL Estimated GFR ML/MIN Glucose (74-106) mg/dL Lactic Acid 2.1 H 3.4 H (0.4-2.0) Calcium (8.4-10.2) mg/dL Ferritin (11.1-264) ng/mL Total Bilirubin (0.2-1.3) mg/dL AST (14-36) U/L ALT (0-35) U/L Alkaline Phosphatase (38-126) U/L Troponin I < 0.012 (0.000-0.034) ng/mL Serum Total Protein (6.3-8.2) g/dL Albumin (3.5-5.0) g/dL Slides for Path Review 05/17/21 05/17/21 05/17/21 Range/Units 11:35 11:35 11:35 WBC (4.0-10.5) K/mm3 RBC (4.1-5.4) M/mm3 Hgb (12.0-16.0) gm/dl Hct (35-47) % MCV (78-100) fl MCH (26-32) pg MCHC (32-36) g/dl RDW (11.5-14.0) % Plt Count (150-450) K/mm3 MPV (7.5-11.0) fl Gran % (36.0-66.0) % Eos # (Auto) (0-0.5) Absolute Lymphs (auto) (1.0-4.6) Absolute Monos (auto) (0.0-1.3) Lymphocytes % (24.0-44.0) % Monocytes % (0.0-12.0) % Eosinophils % (0.00-5.0) % Basophils % (0.0-0.4) % Absolute Granulocytes (1.4-6.9) Basophils # (0-0.4) D-Dimer 862 H* (215-500) ng/mL Sodium 139 (137-145) mmol/L Potassium 4.2 (3.5-5.1) mmol/L Chloride 103 (98-107) mmol/L Carbon Dioxide 23 (22-30) mmol/L Anion Gap 17.0 H (5-15) MEQ/L BUN 21 H (7-17) mg/dL Creatinine 0.69 (0.52-1.04) mg/dL Estimated GFR > 60.0 ML/MIN Glucose 194 H (74-106) mg/dL Lactic Acid (0.4-2.0) Calcium 8.4 (8.4-10.2) mg/dL Ferritin 132 (11.1-264) ng/mL Total Bilirubin 0.60 (0.2-1.3) mg/dL AST 65 H (14-36) U/L ALT 21 (0-35) U/L Alkaline Phosphatase 88 (38-126) U/L Troponin I (0.000-0.034) ng/mL Serum Total Protein 6.8 (6.3-8.2) g/dL Albumin 3.6 (3.5-5.0) g/dL Slides for Path Review 05/17/21 05/17/21 Range/Units 11:15 11:04 WBC 2.2 L (4.0-10.5) K/mm3 RBC 4.66 (4.1-5.4) M/mm3 Hgb 13.6 (12.0-16.0) gm/dl Hct 42.7 (35-47) % MCV 91.6 (78-100) fl MCH 29.2 (26-32) pg MCHC 31.9 L (32-36) g/dl RDW 14.7 H (11.5-14.0) % Plt Count 83 L (150-450) K/mm3 MPV 11.0 (7.5-11.0) fl Gran % 57.7 (36.0-66.0) % Eos # (Auto) 0.01 (0-0.5) Absolute Lymphs (auto) 0.75 L (1.0-4.6) Absolute Monos (auto) 0.17 (0.0-1.3) Lymphocytes % 34.1 (24.0-44.0) % Monocytes % 7.7 (0.0-12.0) % Eosinophils % 0.5 (0.00-5.0) % Basophils % 0.0 (0.0-0.4) % Absolute Granulocytes 1.27 L (1.4-6.9) Basophils # 0 (0-0.4) D-Dimer (215-500) ng/mL Sodium (137-145) mmol/L Potassium (3.5-5.1) mmol/L Chloride (98-107) mmol/L Carbon Dioxide (22-30) mmol/L Anion Gap (5-15) MEQ/L BUN (7-17) mg/dL Creatinine (0.52-1.04) mg/dL Estimated GFR ML/MIN Glucose (74-106) mg/dL Lactic Acid (0.4-2.0) Calcium (8.4-10.2) mg/dL Ferritin (11.1-264) ng/mL Total Bilirubin (0.2-1.3) mg/dL AST (14-36) U/L ALT (0-35) U/L Alkaline Phosphatase (38-126) U/L Troponin I < 0.012 (0.000-0.034) ng/mL Serum Total Protein (6.3-8.2) g/dL Albumin (3.5-5.0) g/dL Slides for Path Review YES - Progress Progress: re-examined Air Movement: good Progress Note: 05/17/21 15:18 50 years old with positive COVID-19 is evaluated for worsening cough and some hemoptysis this morning. Patient is not tachypneic or tachycardic. Maintaining oxygen saturation around 95% on room air. Has stable H&H. CBC otherwise consistent with Covid. Does have some element of dehydration and given fluid bolus. Patient also has elevated lactate 3.4 and recheck is 2.1. I have obtained CTA chest which showed bilateral Covid pneumonia. I believe she is coughing from worsening bronchitis/pneumonia. She is given a dose of Levaquin here and will continue to go home. Patient is diabetic and not very well controlled, will not give steroid. We will give her an inhaler to use as needed. Discussed the course of disease and signs symptoms of worsening needing return to ER which she seems understanding. Stable for discharge. 05/17/21 15:20 Blood Culture(s) Obtained: Yes Antibiotics given: Yes Counseled pt/family regarding: lab results, diagnosis, need for follow-up, rad results - Departure Departure Disposition: Home Clinical Impression: Pneumonia due to COVID-19 virus Condition: Stable Critical Care Time: No Referrals: MATTHIAS PALACIO MD [Primary Care Provider] - (In 2 days for reevaluation) Instructions: Pneumonia, Adult (DC) Additional Instructions: Use inhaler as needed and talk to your primary care if it stays out of control. Drink plenty of fluids. Return to ER for worsening cough/blood in sputum, chest pain or if develop shortness of breath etc. Prescriptions: Levofloxacin [Levaquin 500 MG Tablet] 500 mg PO DAILY #7 tablet Albuterol 8 gm Mdi Hfa [Ventolin Hfa MDI] 8 gm IH Q4H #1 inh
[2021-05-17 15:22] VITALS: BP 132/80; PULSE 85
--- NOTE | 2021-05-17 21:50 | XRAY ---
Indication: Hemoptysis. Positive Covid 19. Multiple contiguous axial images obtained through the chest using 100 cc Isovue 370 contrast and PE protocol. Comparison: None There is good opacification of the pulmonary arteries to include the lobar and segmental branches. However mild respiration artifact limits evaluation of the more distal lobar and segmental branches. No pulmonary embolus. Heart is not enlarged. Aorta minimally arteriosclerotic without aneurysm/dissection. No pathologic mediastinal/hilar lymphadenopathy. Lungs demonstrates mild diffuse bilateral patchy airspace disease. No consolidation or large effusion. Bony thorax intact with mild degenerative changes throughout the thoracic spine and incompletely visualized thoracolumbar posterior fusion hardware producing beam artifact. Limited upper abdomen demonstrates mild diffuse fatty liver, 14.7 cm splenomegaly, and a few hepatic/splenic calcified granulomas. Impression: 1. Pulmonary embolus evaluation limited by respiration artifact. No obvious pulmonary embolus. 2. Diffuse bilateral patchy airspace disease. 3. Incidental fatty liver, splenomegaly, chronic bony findings, and old granulomatous disease. Comment: Preliminary interpretation made by C. No critical discrepancy.
== END 2021-05-17 15:51 | disposition home or self-care (01) ==
LOC: ED 10:44
DX: U07.1 COVID-19 (principal); B34.2 Coronavirus infection, unspecified; J12.89 Other viral pneumonia; I10 Essential (primary) hypertension; E03.9 Hypothyroidism, unspecified; E78.00 Pure hypercholesterolemia, unspecified; G62.9 Polyneuropathy, unspecified; M81.0 Age-related osteoporosis without current pathological fracture; E11.9 Type 2 diabetes mellitus without complications
CPT/HCPCS: 36000; 36415; 71260; 80053; 82728; 83605; 84484; 85025; 85379; 87040; 93005; 93041; 94760; 99284; A9270-GY

== ENCOUNTER 2023-06-17 14:00 | Emergency (ER) | payer OTHER ==
--- NOTE | 2023-06-17 14:25 | XRAY ---
Indication: Pain following fall. Comparison: None 3 view right ankle demonstrates osteopenia, small heel spurs, mild midfoot degenerative changes, and 8 mm well-circumscribed medial malleolus tip heterotopic ossification. No acute bony, articular, or soft tissue abnormalities.
--- NOTE | 2023-06-17 14:37 | ERPHSYRPT ---
- History of Present Illness Time Seen by Provider: 06/17/23 14:37 Source: patient Exam Limitations: no limitations Patient Subjective Stated Complaint: pt states that she was walking out of the hospital and heard a pop in her right ankle Triage Nursing Assessment: pt came into the er via wheelchair; pt transferred self to cot; pt is axo x4; c/o rt ankle injury; pt has strong rt pedal pulse; good cap refill to rt foot; no swelling present to rt ankle; no bruising present to rt ankle; good ROM to rt ankle; skin PDW; no respiratory distress present; vitals wnl Physician History: This is a diabetic, morbidly obese 52-year-old white female who has a history of hypertension, hypercholesterolemia, hypothyroidism and was here at the hospital obtaining labs when she tripped and felt/heard a pop on the lateral aspect of her right ankle and then had pain after this occurred. She is able to bear weight but it hurts to do so. Method of Injury: twisted Occurred: just prior to arrival (And tripped) Quality: aching Severity of Pain-Max: mild (To moderate) Severity of Pain-Current: mild (Moderate) Lower Extremities Pain: ankle: right Modifying Factors: Improves With: movement Associated Symptoms: popping sensation, other (Hurts to bear weight but can do so) Allergies/Adverse Reactions: tramadol Adverse Reaction (Mild, Verified 06/17/23 14:08) constipation Home Medications: Aspirin EC 81 mg [Ecotrin 81 mg] 81 mg PO DAILY 05/26/17 [History] Carvedilol [Coreg ] 6.25 mg PO BID 05/26/17 [History] Ezetimibe 10 mg [Zetia 10 MG] 10 mg PO HS 05/26/17 [History] Lisinopril 10 mg [Zestril 10 MG] 10 mg PO DAILY 05/26/17 [History] Metformin HCl 500 mg [Glucophage 500 MG] 850 mg PO BID 05/26/17 [History] Duloxetine HCl [Cymbalta] 60 mg PO BID 04/06/18 [History] Levothyroxine Sodium 75 Mcg [Synthroid 75 Mcg] 75 mcg PO DAILY 09/05/18 [History] Pravastatin Sodium [Pravachol] 40 mg PO HS 04/06/18 [History] Pregabalin [Lyrica 150Mg] 150 mg PO BID 04/06/18 [History] Hx Tetanus, Diphtheria Vaccination/Date Given: ([id number]) Hx Influenza Vaccination/Date Given: No Hx Pneumococcal Vaccination/Date Given: No Travel Risk - International Travel Have you traveled outside of the country in past 3 weeks: No - Coronavirus Screening Are you exhibiting any of the following symptoms?: No Close contact with a COVID-19 positive Pt in past 14-21 Days: No - Vaccine Status Have you recieved a Covid-19 vaccination: No - Review of Systems Constitutional: No Symptoms Eyes: No Symptoms Ears, Nose, & Throat: No Symptoms Respiratory: No Symptoms Cardiac: No Symptoms Abdominal/Gastrointestinal: No Symptoms Genitourinary Symptoms: No Symptoms Musculoskeletal: Injury (Right ankle) Skin: No Symptoms Neurological: No Symptoms Psychological: No Symptoms Endocrine: No Symptoms Hematologic/Lymphatic: No Symptoms Immunological/Allergic: No Symptoms All Other Systems: Reviewed and Negative - Past Medical History Pertinent Past Medical History: Yes Neurological History: Migraines, Peripheral Neuropathy Cardiac History: High Cholesterol, Hypertension Respiratory History: No Pertinent History Endocrine Medical History: Diabetes Type II, Hypothyroidism Musculoskeletal History: Arthritis GI Medical History: No Pertinent History History: No Pertinent History Psycho-Social History: Anxiety, Depression Female Reproductive Disorders: No Pertinent History Other Medical History: bone spur on spine. 30% heart blockage no stents - Past Surgical History Past Surgical History: Yes Neuro Surgical History: No Pertinent History Cardiac: Cardiac Catheterization Respiratory: No Pertinent History Gastrointestinal: No Pertinent History Genitourinary: No Pertinent History Musculoskeletal: Orthopedic Surgery Female Surgical History: No Pertinent History Other Surgical History: Lumbar back surgery 2014. neck fustion and bone spur removal. lymph node removal left armpit. low lumbar fusion. hector knees. left hip replacement - Social History Smoking Status: Never smoker Exposure to second hand smoke: No Drug Use: none Patient Lives Alone: No - Nursing Vital Signs Nursing Vital Signs: Initial Vital Signs Temperature 98 F 06/17/23 14:02 Pulse Rate 99 H 06/17/23 14:02 Respiratory Rate 14 06/17/23 14:02 Blood Pressure 127/70 06/17/23 14:02 O2 Sat by Pulse Oximetry 97 06/17/23 14:02 Pain Scale Pain Intensity 3 - Physical Exam General Appearance: no apparent distress, alert, anxiety, obese Eyes, Ears, Nose, Throat Exam: normal ENT inspection, moist mucous membranes Neck Exam: normal inspection, non-tender, supple, full range of motion Cardiovascular/Respiratory Exam: chest non-tender, no respiratory distress Gastrointestinal/Abdominal Exam: non-tender Back Exam: normal inspection, normal range of motion, No CVA tenderness, No vertebral tenderness Hips Exam: bilateral: non-tender, normal inspection, normal range of motion, no evidence of injury Legs Exam: bilateral leg: non-tender, normal inspection, normal range of motion, no evidence of injury Knees Exam: bilateral knee: non-tender, normal inspection, normal range of motion, no evidence of injury Ankle Exam: right ankle: bone tenderness (Lateral aspect), soft tissue tenderness (Lateral aspect), left ankle: non-tender, bilateral ankle: normal inspection, normal range of motion, no evidence of injury Foot Exam: bilateral foot: non-tender, normal inspection, normal range of motion, no evidence of injury Neuro/Tendon Exam: normal sensation, normal motor functions, normal tendon functions, responds to pain, no evidence tendon injury Mental Status Exam: alert, oriented x 3, cooperative Skin Exam: normal color, warm, dry SpO2 Interpretation: normal SpO2: 95 O2 Delivery: Room Air - Course Nursing assessment & vital signs reviewed: Yes Ordered Tests: Active Orders 24 hr Category Date Time Status Darren Bandage Application -[facility] STAT Care 06/17/23 14:58 Active ANKLE (3 VIEWS) Stat Exams 06/17/23 14:08 Completed - Progress Progress: pain not gone completely, re-examined Progress Note: 06/17/23 15:12 This patient's medical issue is 1 of low complexity. Level complex in the work- up performed is based on review of the patient's past medical history, review of patient's drug allergy list, review of the patient's medication list, history of present illness and physical findings on examination. The work-up in this patient includes x-ray of right ankle. The x-ray of the right ankle was interpreted by the radiologist and I reviewed the interpretation. There is no evidence of any acute fracture or dislocation. Counseled pt/family regarding: diagnosis, need for follow-up, rad results Medical Desision Making - Diagnostic Testing Diagnostic test were ordered, analyzed, and reviewed by me: Yes Radiological Interpretation: Reviewed by me, Teleradiologist Report - Risk of complications Minimal Risk: Minimal risk of morbidity - Departure Departure Disposition: Home Clinical Impression: Right ankle sprain Condition: Stable Critical Care Time: No Referrals: MATTHIAS PALACIO MD [Primary Care Provider] - Follow up/PCP as directed Additional Instructions: Wear Darren wrap for comfort. When not ambulating elevate your right lower extremity above the level of your heart. Ice pack 3 times a day for the next 48 hours. Use Tylenol and ibuprofen for pain control. If after 48 to 72 hours your symptoms have not improved, you may follow-up with your own carbide tool die maker or with the [facility] orthopedic clinic. The clinic is open Wednesday through Wednesday 8 AM to 10 AM. It is a walk-in clinic and you do not need to have appointment. Remember next week is Thanksgiving and the hours may be different than usual.
[2023-06-17 15:08] VITALS: TEMP 97.6
[2023-06-17 15:53] VITALS: BP 119/75; PULSE 101; RESP 18; O2SAT 97
== END 2023-06-17 15:52 | disposition home or self-care (01) ==
LOC: ED 14:00
DX: S93.401A Sprain of unspecified ligament of right ankle, initial encounter (principal); W18.40XA Slipping, tripping and stumbling without falling, unspecified, initial encounter; Y93.01 Activity, walking, marching and hiking; Y92.239 Unspecified place in hospital as the place of occurrence of the external cause; I10 Essential (primary) hypertension; E78.5 Hyperlipidemia, unspecified; E11.42 Type 2 diabetes mellitus with diabetic polyneuropathy; Z79.84 Long term (current) use of oral hypoglycemic drugs; Z79.899 Other long term (current) drug therapy; Z28.310 Unvaccinated for COVID-19
CPT/HCPCS: 73610; 99283

== ENCOUNTER 2023-07-27 06:23 | Day surgery (SDC) | payer OTHER ==
[2023-07-27 07:00] LABS: HCG URINE TEST NEGATIVE (NEGATIVE)
[2023-07-27] MEDS ORDERED: CEFAZOLIN 2 GM-D5W BAG** 2 GM/50 ML ML IV SCH (07:00)
[2023-07-27] MEDS ORDERED: Lactated Ringers 1,000 ML IV SCH (07:00)
[2023-07-27 07:33] LABS: Hematocrit 37.6 % (35-47); Hemoglobin 11.9 g/dL (12.0-16.0); Mean Cell Volume 85.8 fL (78-100); Mean Corpuscular Hemoglobin 27.2 pg (26-32); Mean Corpuscular Hgb Concent. 31.6 g/dL (32-36); Mean Platelet Volume 11.4 fL (7.5-11.0); Platelet Count 91 x10^3/uL (150-450); Red Blood Count 4.38 x10^6/uL (4.1-5.4); Red Cell Distribution Width 14.7 % (11.5-14.0)
[2023-07-27 07:40] VITALS: RESP 18
[2023-07-27 07:50] LABS: ALBUMIN 3.8 g/dL (3.5-5.0); ANION GAP 13.7 MEQ/L (5-15); BILIRUBIN,TOTAL 0.6 mg/dL (0.2-1.3); Calcium 8.9 mg/dL (8.4-10.2); Creatinine 1 0.52 mg/dL (0.52-1.04); EST GLOMERULAR FILTRATION RATE 109.7 ML/MIN; Total Protein 7.1 g/dL (6.3-8.2)
[2023-07-27] MEDS ORDERED: SUBLIMAZE 100 MCG/2 ML ONE (08:25)
[2023-07-27] MEDS ORDERED: Zemuron 100 MG/10 ML ONE (08:25)
[2023-07-27] MEDS ORDERED: Versed 2 MG/2 ML Injection ONE (08:25)
[2023-07-27] MEDS ORDERED: DIPRIVAN 200 MG/20 ML IV ONE (08:25)
[2023-07-27] MEDS ORDERED: Quelicin Fliptop 200 MG/10 ML ONE (08:25)
[2023-07-27 09:47] LABS: Slide Review YES
[2023-07-27 10:24] VITALS: BP 135/82; PULSE 109; TEMP 97.3; O2SAT 94
--- NOTE | 2023-07-28 09:25 | OP ---
SURGERY DATE/TIME: 07/27/2023 0828 PREOPERATIVE DIAGNOSIS: Postmenopausal bleeding. POSTOPERATIVE DIAGNOSIS: Postmenopausal bleeding. PROCEDURE: D&C. SURGEON: Homero Denny D.O. DISHROOM ATTENDANT: Vielka Flower salesperson surgical appliances. ANESTHESIA: General. ESTIMATED BLOOD LOSS: Minimal. COMPLICATIONS: None. INDICATIONS: The risks, benefits, indications and alternatives of the procedure were reviewed with the patient prior to procedure. The patient understood the risk of infection, bleeding, bowel injury, bladder injury, uterine perforation, pelvic infection associated with the surgery and desires to have this surgery as a possible means to alleviate her current medical condition. DESCRIPTION OF PROCEDURE AND FINDINGS: At this time the patient is taken to the operating room, given general sedation, placed in the dorsal lithotomy position, prepped and draped in the usual sterile fashion. A weighted speculum is then placed in the patient's vagina and the anterior lip of the cervix was noted to be deep in the vaginal region where there was difficulty obtaining the cervix with a tenaculum. Therefore it would have been very difficult to place hysteroscopy. From this point, the cervix was dilated and a curette was then taken through the endocervical region towards the fundal region where curettage was performed in all quadrants of the region retrieving a mild to moderate amount of tissue. After complete curettage, all instruments were removed from the patient's vaginal region. The patient was then taken out of the dorsal lithotomy position, was taken out of anesthesia and was then taken to the recovery room in stable condition. All instruments and laps were accounted for x2.
== END 2023-07-27 10:10 | disposition home or self-care (01) ==
LOC: SDC 06:23
PROVIDERS: ATTEND Obstetrics & Gynecology
DX: N95.0 Postmenopausal bleeding (principal); E11.9 Type 2 diabetes mellitus without complications; I10 Essential (primary) hypertension
CPT/HCPCS: 36415; 80053; 81025; 85027; 93005; J0330; J0690; J2250; J2704; J3010